=== PATIENT | male | born 1955 | race African-American/Black ===

== ENCOUNTER 2018-08-18 11:34 | Inpatient (IN) | payer OTHER ==
[2018-08-18 14:43] VITALS: BMI 30.4
--- NOTE | 2018-08-18 16:16 | HP ---
COWS - Scale Resting Pulse: 0= [place] 80 or Below Sweatin= Chills/Flushing Restless Observation: 1= Difficult to Sit Still Pupil Size: 0= Normal to Room Light Bone or Joint Aches: 2= Severe Diffuse Aches Runny Nose/ Eye Tearin= None GI Upset > 30mins: 2= Nausea/Diarrhea Tremor Observation: 2= Slight Tremor Visible Yawning Observation: 1= 1-2x During Session Anxiety or Irritability: 2=Irritable/Anxious Goose Flesh Skin: 3=Piloerection COWS Score: 14 CIWA Score - Admission Criteria OASAS Guidelines: Admission for Medically Managed Detox: Requires at least one of the followin. CIWA greater than 12 2. Seizures within the past 24 hours 3. Delirium tremens within the past 24 hours 4. Hallucinations within the past 24 hours 5. Acute intervention needed for co occurring medical disorder 6. Acute intervention needed for co occurring psychiatric disorder 7. Severe withdrawal that cannot be handled at a lower level of care (continued vomiting, continued diarrhea, abnormal vital signs) requiring intravenous medication and/or fluids 8. Admission ROS [facility] Chief Complaint: "I'm here to get help for my drug problem." Patient is here for Detox for Heroin and Alcohol. Allergies/Adverse Reactions: Allergies Allergy/AdvReac Type Severity Reaction Status Date / Time No Known Allergies Allergy Verified 08/18/18 14:24 History of Present Illness: Patient is a 63 YO male here for Detox from Heroin and Alcohol. Patient also reports daily use of Cocaine, PCP, and Marijuana. Patient was evaluated at [facility] yesterday, then transported here to [facility]. Patient reports that he had prescription Biktarvy and Augmentin with him at [facility] (Augmentin was prescribed approx. four days ago at Urgent Care for URI). This is patient's first detox admission at [facility]. Patient had a Detox admission at [facility] ([place], [place]) in March,. Patient was a client at [facility] ([place], [place], Patient unable to recall name of clinic) for approx. 30 days up until 03/2018, Stopped because he did not like how it made him feel. [facility] I-STOP REGISTRY SHOWS NO HISTORY OF PRESCRIPTION OF CONTROLLED SUBSTANCES OVER LAST 12 MONTHS. Exam Limitations: No Limitations - Ebola screening Have you traveled outside of the country in the last 21 days: No (N) Have you had contact with anyone from an Ebola affected area: No Have you been sick,other than usual withdrawal symptoms: No Do you have a fever: No - Review of Systems Constitutional: Chills, Diaphoresis, Malaise, Changes in sleep, Unintentional Wgt. Loss (Lost approx. 17 lbs. over last approx. 2 weeks.) EENT: reports: No Symptoms Reported Respiratory: reports: Productive cough (Clear-Yellow Color.) Cardiac: reports: No Symptoms Reported GI: reports: Diarrhea, Nausea, Poor Appetite, Abdominal cramping : reports: No Symptoms Reported Musculoskeletal: reports: No Symptoms Reported Integumentary: reports: No Symptoms Reported, Other (Patient Denies I.V. Drug Use.) Neuro: reports: Tremors Endocrine: reports: No Symptoms Reported Hematology: reports: No Symptoms Reported Psychiatric: reports: Judgement Intact, Mood/Affect Appropiate, Orientated x3, Anxious, Depressed (Took Welbutrin and Seroquel in past.) Other Systems: Reviewed and Negative Patient History - Patient Medical History Hx Anemia: No Hx Asthma: No Hx Chronic Obstructive Pulmonary Disease (COPD): No Hx Cancer: No Hx Cardiac Disorders: No Hx Congestive Heart Failure: No Hx Hypertension: No Hx Hypercholesterolemia: No Hx Pacemaker: No HX Cerebrovascular Accident: No Hx Seizures: No Hx Dementia: No Hx Diabetes: No Hx Gastrointestinal Disorders: No Hx Liver Disease: Yes (Hepatitis C, Diagnosed 2001. No Treatment Yet.) Hx Genitourinary Disorders: No Hx Sexually Transmitted Disorders: No Hx Renal Disease (ESRD): No Hx Thyroid Disease: No Hx Human Immunodeficiency Virus (HIV): Yes (Takes Biktarvy, Diagnosed 2001.) Hx Hepatitis C: Yes (Diagnosed 2001. No Treatment Yet.) Hx Depression: Yes (Meds. in Past, None Currently.) Hx Suicide Attempt: No (PATIENT DENEIS CURRENT SI / HI.) Hx Bipolar Disorder: No Hx Schizophrenia: No Other Medical History: DENIES. - Patient Surgical History Past Surgical History: No Hx Neurologic Surgery: No Hx Cataract Extraction: No Hx Cardiac Surgery: No Hx Lung Surgery: No Hx Breast Surgery: No Hx Breast Biopsy: No Hx Abdominal Surgery: No Hx Appendectomy: No Hx Cholecystectomy: No Hx Genitourinary Surgery: No Hx Orthopedic Surgery: No Other Surgical History: DENIES. Anesthesia Reaction: No - PPD History Previous Implant?: Yes Documented Results: Negative w/o proof Implanted On Prior [facility] Admission?: No PPD to be Administered?: Yes - Reproductive History Patient is a Female of Child Bearing Age (11 -55 yrs old): No (PATIENT IS MALE.) - Smoking Cessation Smoking history: Current every day smoker Have you smoked in the past 12 months: Yes Aproximately how many cigarettes per day: 2 Cigars Per Day: 0 Hx Chewing Tobacco Use: No Initiated information on smoking cessation: Yes 'Breaking Loose' booklet given: 08/18/18 (GIVEN ON UNIT.) - Substance & Tx. History Hx Alcohol Use: Yes Hx Substance Use: Yes Substance Use Type: Alcohol, Cocaine, Heroin, Marijuana Hx Substance Use Treatment: Yes (1 Previous detox Admission at [facility] ([place], [place]), 2017.) - Substances abused Heroin Substance route: Inhalation Frequency: Daily Amount used: 200 hundred dollars Age of first use: 11 Date of last use: 08/17/18 Cocaine Substance route: Smoking Frequency: Daily Amount used: 100 dollars Age of first use: 21 Date of last use: 08/17/18 PCP Substance route: Smoking Frequency: Daily Amount used: 100 dollars Age of first use: 21 Date of last use: 08/17/18 Alcohol Substance route: Oral Frequency: Daily Amount used: 1 quart Age of first use: 11 Date of last use: 08/17/18 Marijuana/Hashish Substance route: Smoking Frequency: Daily Amount used: 100 dollars Age of first use: 11 Date of last use: 08/17/18 Family Disease History - Family Disease History Family Disease History: Diabetes: Brother, Other: Father (HIV, Schizophrenia, .) Admission Physical Exam [facility] - Vital Signs Vital Signs: Vital Signs - 24 hr 08/18/18 14:24 Temperature 98.2 F Pulse Rate 72 Respiratory 16 Rate Blood Pressure 132/73 - Physical General Appearance: Yes: No Apparent Distress, Nourished, Appropriately Dressed , Tremorous, Anxious HEENTM: Yes: Hearing grossly Normal, Normocephalic, Normal Voice, EDER, Pharynx Normal Respiratory: Yes: Chest Non-Tender, Lungs Clear, No Respiratory Distress, No Accessory Muscle Use Neck: Yes: No masses,lesions,Nodules, Supple, Trachea in good position Breast: Yes: Breast Exam Deferred Cardiology: Yes: Regular Rhythm, Regular Rate, S1, S2 Abdominal: Yes: Normal Bowel Sounds, Non Tender, Flat, Soft Genitourinary: Yes: Within Normal Limits Back: Yes: Normal Inspection Musculoskeletal: Yes: full range of Motion, Gait Steady Extremities: Yes: Normal Capillary Refill, Normal Range of Motion, Non-Tender, Tremors Neurological: Yes: Fully Oriented, Alert, Normal Mood/Affect, Normal Response Integumentary: Yes: Normal Color, Dry, Warm Lymphatic: Yes: Within Normal Limits - Diagnostic (1) Opioid dependence with withdrawal Current Visit: Yes Status: Acute (2) Alcohol dependence with uncomplicated withdrawal Current Visit: Yes Status: Acute (3) Cocaine dependence, uncomplicated Current Visit: Yes Status: Chronic (4) Cannabis dependence, uncomplicated Current Visit: Yes Status: Chronic (5) PCP (phencyclidine) abuse Current Visit: Yes Status: Acute (6) Nicotine dependence Current Visit: Yes Status: Chronic Qualifiers: Nicotine product type: cigarettes Substance use status: uncomplicated Qualified Code(s): F17.210 - Nicotine dependence, cigarettes, uncomplicated (7) HIV (human immunodeficiency virus infection) Current Visit: Yes Status: Chronic Qualifiers: HIV symptom status: unspecified Qualified Code(s): B20 - Human immunodeficiency virus [HIV] disease (8) Hepatitis C Current Visit: Yes Status: Chronic Qualifiers: Viral hepatitis chronicity: chronic Hepatic coma status: without hepatic coma Qualified Code(s): B18.2 - Chronic viral hepatitis C (9) History of depression Current Visit: Yes Status: Chronic Cleared for Admission [facility] or Rehab [facility] Level of Care: Medically Managed Detox Regimen/Protocol: Methadone (AND ATIVAN (History of Hepatitis C).) Claeared for Rehab Admission: No Breathalyzer - Breathalyzer Breathalyzer: 0 Urine Drug Screen - Test Device Lot number: [id number] Expiration date: 05/06/20 - Control Is test valid?: Yes - Results Drug screen NEGATIVE: No Urine drug screen results: THC-Marijuana, NEGRITO-Cocaine, MOP-Opiates Inpatient Rehab Admission - Rehab Decision to Admit Inpatient rehab admission?: No
[2018-08-18] MEDS ORDERED: LORazepam 1 MG TABLET PO PRN (16:36)
[2018-08-18] MEDS ORDERED: MAGNESIUM CITRATE 300 ML BOTTLE PO PRN (16:36)
[2018-08-18] MEDS ORDERED: NICOTINE POLACRILEX 2 MG GUM BUC PRN (16:36)
[2018-08-18] MEDS ORDERED: cloNIDine HCL 0.1 MG TABLET PO PRN (16:36)
[2018-08-18] MEDS ORDERED: MAG HYDROX/AL HYDROX/SIMETH 30 ML UNIT-DOSE CUP PO PRN (16:36)
[2018-08-18] MEDS ORDERED: MAGNESIUM HYDROX 2400MG/30ML ORAL SUSPENSION 30 ML CUP PO PRN (16:36)
[2018-08-18] MEDS ORDERED: MENTHOL/PHENOL 1 EACH UD MM PRN (16:36)
[2018-08-18] MEDS ORDERED: NALOXONE HCL 0.4 MG/ML VIAL IVPUSH PRN (16:36)
[2018-08-18] MEDS ORDERED: MELATONIN 5 MG TABLETS PO PRN (16:36)
[2018-08-18] MEDS ORDERED: METHOCARBAMOL 500 MG TABLET PO PRN (16:36)
[2018-08-18] MEDS ORDERED: BISMUTH SUBSALICYLATE 524 MG/30 ML UD PO PRN (16:36)
[2018-08-18] MEDS ORDERED: PROCHLORPERAZINE MALEATE 5 MG TABLET PO PRN (16:36)
[2018-08-18] MEDS ORDERED: IBUPROFEN 400 MG TABLET (FP) PO PRN (16:36)
[2018-08-18] MEDS: LORazepam 2 MG TABLET PO SCH ×2 (17:58→23:53)
[2018-08-18] MEDS ORDERED: METHADONE HCL 10 MG TABLET (FOR DETOX USE ONLY) PO ONE ×2 (18:00→23:00)
[2018-08-18] MEDS: NICOTINE 14 MG/24 HOURS TOPICAL PATCH TD SCH ×2 (18:06→18:07)
--- NOTE | 2018-08-18 18:17 | PN ---
[facility] Progress Note Note: AT TIME OF ADMISSION, PATIENT REPORTS THAT HE TAKES 'BIKTARVY' FOR TREATMENT OF H.I.V. PATIENT DID NOT BRING MEDICATION WITH HIM AT TIME OF ADMISSION, STATING THAT HE HAD IT WITH HIM AT [facility] WHEN HE WAS THERE YESTERDAY, BUT THAT IT DISAPPEARED WHILE HE WAS THERE AND THAT HE THINKS THAT IT WAS STOLEN." PER PHARMACIST TAMI AT PATIENT'S PHARMACY ([facility], [address]), PATIENT ONLY FILLED PRESCRIPTION FOR BIKTARVY FOR THE FIRST TIME YESTERDAY (08/17/2018) AND THAT HE HAS BEEN PRESCRIBED 'TIVICAY' FOR LAST SEVERAL TIMES BEFORE THAT. LAST TIME TIVICAY WAS FILLED WAS ON 08/13/2018. [facility] THAT PATIENT HAS FILLED 30- DAY PRESCRIPTIONS FOR TIVICAY AT SIGNIFICANTLY LESS THAN 30-DAY INTERVALS IN RECENT PAST. AFTER CONSULTATION WITH [facility] PHARMACIST TRISHA MARTÍNEZ, BIKTARVY NOT TO BE PRESCRIBED WHILE PATIENT IS ADMITTED FOR THIS DETOX ADMISSION. PATIENT MADE AWARE OF THIS AND ADVISED TO FOLLOW-UP WITH HIS H.I.V. / I.D. MEDICAL PROVIDER AFTER DISCHARGE FORM DETOX FOR FURTHER EVALUATION. Jamar HERNÁNDEZ NP
[2018-08-18] MEDS ORDERED: THIAMINE HCL 100 MG TABLET (FP) PO SCH (22:00)
[2018-08-18] MEDS: AMOX TR/POT CLAV 875MG/125MG TABLETS (FP) PO SCH (23:53)
[2018-08-19] MEDS: LORazepam 2 MG TABLET PO SCH ×2 (05:44→10:28)
[2018-08-19] MEDS ORDERED: PATIENT'S OWN MEDICATION (NON-FORMULARY) (Bictegrav/Emtricit/Tenofov Ala 1 EACH) PO SCH (10:00)
[2018-08-19] MEDS ORDERED: METHADONE HCL 10 MG TABLET (FOR DETOX USE ONLY) PO ONE (10:00)
[2018-08-19] MEDS ORDERED: PRENATAL VITAMINS W/ FOLIC ACID TABLET (FP) PO SCH (10:00)
[2018-08-19 10:04] LABS: HEMATOCRIT 39.7 % (35.4-49); HEMOGLOBIN 12.8 GM/dL (11.7-16.9); MCH 30.1 pg (25.7-33.7); MCHC 32.1 g/dl (32.0-35.9); MEAN CELL VOLUME 93.9 fl (80-96); MEAN PLT VOLUME 9.3 fl (7.5-11.1); PLATELET COUNT 279 K/MM3 (134-434); RBC 4.23 M/mm3 (4.00-5.60); RDW 13.2 % (11.9-15.9); WHITE BLOOD COUNT 5.3 K/mm3 (4.0-10.0)
[2018-08-19 10:21] LABS: ALBUMIN 2.9 g/dl (3.4-5.0); BILIRUBIN,TOTAL 0.5 mg/dL (0.2-1); CALCIUM 9.3 mg/dL (8.5-10.1); CREATININE 1.1 mg/dL (0.55-1.3); POTASSIUM 4.3 mmol/L (3.5-5.1); TOT PROT 6.3 g/dl (6.4-8.2)
[2018-08-19] MEDS: AMOX TR/POT CLAV 875MG/125MG TABLETS (FP) PO SCH (10:28)
[2018-08-19] MEDS: NICOTINE 14 MG/24 HOURS TOPICAL PATCH TD SCH (10:34)
[2018-08-19 10:35] VITALS: BP 141/69; PULSE 54; TEMP 97.7
--- NOTE | 2018-08-19 12:08 | PN ---
S Progress Note Note: pt refused to complete detox and needed to handle his personal issue at home. staff tried to assist but pt insisted on leaving, pt signed out AMA.
--- NOTE | 2018-08-19 12:09 | DS ---
[facility] Detox Discharge Summary Admission Date: 08/18/18 - History Present History: Cannabis Dependence, Cocaine Dependence, Opioid Dependence - Physical Exam Results Vital Signs: Vital Signs Temperature 97.7 F 08/19/18 10:35 Pulse Rate 54 L 08/19/18 10:35 Respiratory Rate 18 08/19/18 10:35 Blood Pressure 141/69 08/19/18 10:35 O2 Sat by Pulse Oximetry (%) - Treatment Hospital Course: Discharged Condition Good - Medication Discharge Medications: Ambulatory Orders Amoxicillin/Potassium Clav [Amox-Clav 875-125 mg Tablet] 1 each PO BID 08/18/18 Bictegrav/Emtricit/Tenofov Ala [Biktarvy 50-200-25 mg Tablet] 1 each PO DAILY - Diagnosis (1) Alcohol dependence with uncomplicated withdrawal Current Visit: Yes Status: Chronic (2) Opioid dependence with withdrawal Current Visit: Yes Status: Chronic (3) PCP (phencyclidine) abuse Current Visit: Yes Status: Chronic (4) Cannabis dependence, uncomplicated Current Visit: Yes Status: Chronic (5) Cocaine dependence, uncomplicated Current Visit: Yes Status: Chronic (6) HIV (human immunodeficiency virus infection) Current Visit: Yes Status: Chronic Qualifiers: HIV symptom status: unspecified Qualified Code(s): B20 - Human immunodeficiency virus [HIV] disease (7) Hepatitis C Current Visit: Yes Status: Chronic Qualifiers: Viral hepatitis chronicity: chronic Hepatic coma status: without hepatic coma Qualified Code(s): B18.2 - Chronic viral hepatitis C (8) History of depression Current Visit: Yes Status: Chronic (9) Nicotine dependence Current Visit: Yes Status: Chronic Qualifiers: Nicotine product type: cigarettes Substance use status: uncomplicated Qualified Code(s): F17.210 - Nicotine dependence, cigarettes, uncomplicated - AMA Did Patient Leave Against Medical Advice: Yes
[2018-08-19 12:38] LABS: EPI CELLS 1.5 /HPF (0-5/HPF); PH,URINE 6.5 (5.0-8.0); URINE APPEARANCE CLEAR; URINE BACTERIA 1516.8 /hpf (NEGATIVE); URINE BILIRUBIN NEGATIVE (NEGATIVE); URINE CASTS 5 /lpf (0-8); URINE COLOR DK YELLOW; URINE GLUCOSE (UA) NEGATIVE (NEGATIVE); URINE KETONE NEGATIVE (NEGATIVE); URINE LEUK ESTERASE NEGATIVE (NEGATIVE); URINE NITRITE NEGATIVE (NEGATIVE); URINE PROTEIN 1+ (NEGATIVE); URINE RBC 0 /hpf (0-4); URINE WBC 0 /hpf (0-5)
--- NOTE | 2018-08-19 14:31 | EKG ---
Test Reason : Blood Pressure : / mmHG Vent. Rate : 050 BPM Atrial Rate : 050 BPM P-R Int : 166 ms QRS Dur : 086 ms QT Int : 498 ms P-R-T Axes : -13 -26 -46 degrees QTc Int : 454 ms SINUS BRADYCARDIA T WAVE ABNORMALITY, CONSIDER INFERIOR ISCHEMIA ABNORMAL ECG NO PREVIOUS ECGS AVAILABLE Confirmed by GABE FLORES, BRITTANI ([id number]) on 08/19/2018 2:31:03 PM Referred By: KENDALL HERNÁNDEZ Confirmed By:BRITTANI BERNAL MD
[2018-08-19] MEDS ORDERED: LORazepam 1 MG TABLET PO SCH (17:00)
[2018-08-20] MEDS ORDERED: METHADONE HCL 10 MG TABLET (FOR DETOX USE ONLY) PO ONE (10:00)
[2018-08-20] MEDS ORDERED: LORazepam 0.5 MG TABLET PO SCH (17:00)
[2018-08-20] MEDS ORDERED: LORazepam 0.5 MG TABLET PO PRN (17:00)
[2018-08-21] MEDS ORDERED: METHADONE HCL 10 MG TABLET (FOR DETOX USE ONLY) PO ONE (10:00)
[2018-08-22] MEDS ORDERED: METHADONE HCL 5 MG TABLET (FOR DETOX USE ONLY) PO ONE (06:00)
== END 2018-08-19 12:05 | disposition left against medical advice (07) | DRG 770 ==
LOC: YASAS 11:34 → Y6N 17:08
PROVIDERS: ADMIT Surgery; ATTEND Surgery
PROC: HZ2ZZZZ Detoxification Services for Substance Abuse Treatment (ICD-10-PCS; principal; 2018-08-18)
DX: F11.23 Opioid dependence with withdrawal (principal); F10.230 Alcohol dependence with withdrawal, uncomplicated; F14.20 Cocaine dependence, uncomplicated; F12.20 Cannabis dependence, uncomplicated; F16.10 Hallucinogen abuse, uncomplicated; F17.210 Nicotine dependence, cigarettes, uncomplicated; Z21 Asymptomatic human immunodeficiency virus [HIV] infection status; B18.2 Chronic viral hepatitis C
CPT/HCPCS: 36415; 80053; 81003; 85027; 86593; 93005; 93010

== ENCOUNTER 2018-09-23 13:55 | Inpatient (IN) | payer OTHER ==
[2018-09-23 17:16] VITALS: BMI 31.1
--- NOTE | 2018-09-23 19:34 | HP ---
COWS - Scale Resting Pulse: 0= [place] 80 or Below Sweatin= Chills/Flushing Restless Observation: 1= Difficult to Sit Still Pupil Size: 1= Pupils >than Normal Bone or Joint Aches: 1= Mild Discomfort Runny Nose/ Eye Tearin= Runny Nose/Eyes GI Upset > 30mins: 1= Stomach Cramp Tremor Observation: 1= Tremor Edison, Not Seen Yawning Observation: 1= 1-2x During Session Anxiety or Irritability: 1=Feels Anxious/Irritable Goose Flesh Skin: 0=Smooth Skin COWS Score: 10 CIWA Score Nausea/Vomitin-Mild Nausea/No Vomiting Muscle Tremors: 1-None Visible, but Edison Anxiety: 3 Agitation: 2 Paroxysmal Sweats: 2 Orientation: 0-Oriented Tacttile Disturbances: 0-None Auditory Disturbances: 0-None Visual Disturbances: 0-None Headache: 0-None Present CIWA-Ar Total Score: 9 - Admission Criteria OAS Guidelines: Admission for Medically Managed Detox: Requires at least one of the followin. CIWA greater than 12 2. Seizures within the past 24 hours 3. Delirium tremens within the past 24 hours 4. Hallucinations within the past 24 hours 5. Acute intervention needed for co occurring medical disorder 6. Acute intervention needed for co occurring psychiatric disorder 7. Severe withdrawal that cannot be handled at a lower level of care (continued vomiting, continued diarrhea, abnormal vital signs) requiring intravenous medication and/or fluids 8. Patient presents the following: Acute intervention needed for co-occurring med or psych disorder Admission Criteria Met: Admission criteria met Admission ROS [facility] Chief Complaint: alcohol and opioid withdrawal symptoms Allergies/Adverse Reactions: Allergies Allergy/AdvReac Type Severity Reaction Status Date / Time No Known Allergies Allergy Verified 08/20/18 12:11 History of Present Illness: Patient is a 63 YO male here for Detox from cocaine, heroin and alcohol dependence is here seeking inpatient detox d/t withdrawal symptoms PMHX: Hep C (untreated), HIV, bradycardia Psych: depression Denies SI/HI Reports unintentional overdose x November 2017. Exam Limitations: No Limitations - Ebola screening Have you traveled outside of the country in the last 21 days: No Have you had contact with anyone from an Ebola affected area: No Do you have a fever: No - Review of Systems Constitutional: Chills, Loss of Appetite, Changes in sleep EENT: reports: Nose Congestion Respiratory: reports: No Symptoms reported Cardiac: reports: No Symptoms Reported GI: reports: Poor Appetite, Poor Fluid Intake, Abdominal cramping : reports: No Symptoms Reported Musculoskeletal: reports: Back Pain Integumentary: reports: Other (b/l ankle swelling) Neuro: reports: No Symptoms reported Endocrine: reports: Increased Thirst Hematology: reports: No Symptoms Reported Psychiatric: reports: Orientated x3, Depressed Other Systems: Reviewed and Negative Patient History - Patient Medical History Hx Anemia: No Hx Asthma: No Hx Chronic Obstructive Pulmonary Disease (COPD): No Hx Cancer: No Hx Cardiac Disorders: No Hx Congestive Heart Failure: No Hx Hypertension: No Hx Hypercholesterolemia: No Hx Pacemaker: No HX Cerebrovascular Accident: No Hx Seizures: No Hx Dementia: No Hx Diabetes: No Hx Gastrointestinal Disorders: No Hx Liver Disease: Yes (Hepatitis C, Diagnosed 2001. No Treatment Yet.) Hx Genitourinary Disorders: No Hx Sexually Transmitted Disorders: No Hx Renal Disease (ESRD): No Hx Thyroid Disease: No Hx Human Immunodeficiency Virus (HIV): Yes (Takes Lettyarmony, Diagnosed 2001.) Hx Hepatitis C: Yes (Diagnosed 2001. No Treatment Yet.) Hx Depression: Yes (Meds. in Past, None Currently.) Hx Suicide Attempt: No (PATIENT DENEIS CURRENT SI / HI.) Hx Bipolar Disorder: No Hx Schizophrenia: No - Patient Surgical History Past Surgical History: No Hx Neurologic Surgery: No Hx Cataract Extraction: No Hx Cardiac Surgery: No Hx Lung Surgery: No Hx Breast Surgery: No Hx Breast Biopsy: No Hx Abdominal Surgery: No Hx Appendectomy: No Hx Cholecystectomy: No Hx Genitourinary Surgery: No Hx Orthopedic Surgery: No Other Surgical History: DENIES. Anesthesia Reaction: No - PPD History Previous Implant?: No Documented Results: Negative w/o proof Date: 08/20/18 PPD to be Administered?: Yes - Smoking Cessation Smoking history: Current every day smoker Have you smoked in the past 12 months: Yes Aproximately how many cigarettes per day: 2 Cigars Per Day: 0 Hx Chewing Tobacco Use: No Initiated information on smoking cessation: Yes 'Breaking Loose' booklet given: 09/23/18 - Substance & Tx. History Hx Alcohol Use: Yes Hx Substance Use: Yes Substance Use Type: Alcohol, Heroin Hx Substance Use Treatment: Yes ([facility] two weeks ago left AMA ) - Substances abused Heroin Substance route: Inhalation Frequency: Daily Amount used: 200 hundred dollars Age of first use: 11 Date of last use: 09/22/18 Cocaine Substance route: Smoking Frequency: Daily Amount used: 100 dollars Age of first use: 21 Date of last use: 09/09/18 PCP Substance route: Smoking Frequency: Daily Amount used: 100 dollars Age of first use: 21 Date of last use: 09/13/18 Alcohol Substance route: Oral Frequency: Daily Amount used: 1 quart liquor + 1 x 24 oz beer Age of first use: 11 Date of last use: 09/21/18 Marijuana/Hashish Substance route: Smoking Frequency: Daily Amount used: 100 dollars Age of first use: 11 Date of last use: 09/15/18 Family Disease History - Family Disease History Family Disease History: Diabetes: Brother, Other: Father (HIV, Schizophrenia, .) Admission Physical Exam [facility] - Vital Signs Vital Signs: Vital Signs - 24 hr 09/23/18 17:11 Pulse Rate 48 L Respiratory 18 Rate Blood Pressure 128/60 - Physical General Appearance: Yes: Disheveled, Sweating, Anxious HEENTM: Yes: EOMI, Hearing grossly Normal, Normal ENT Inspection, Normocephalic , Normal Voice, EDER, Pharynx Normal, Tm's normal Respiratory: Yes: Chest Non-Tender, Lungs Clear, Normal Breath Sounds, No Respiratory Distress, No Accessory Muscle Use Neck: Yes: No masses,lesions,Nodules, Trachea in good position Breast: Yes: Breast Exam Deferred Cardiology: Yes: Regular Rhythm, Regular Rate Abdominal: Yes: Normal Bowel Sounds, Non Tender, Flat, Soft Genitourinary: Yes: Within Normal Limits Back: Yes: Normal Inspection Musculoskeletal: Yes: full range of Motion, Gait Steady, Pelvis Stable, Back pain Extremities: Yes: Normal Capillary Refill, Normal Inspection, Normal Range of Motion Neurological: Yes: box stacker II-XII NML intact, Fully Oriented, Alert, Motor Strength 5/5, Depressed Affect Integumentary: Yes: Normal Color, Warm, Diaphoresis Lymphatic: Yes: Within Normal Limits - Diagnostic (1) Alcohol dependence with uncomplicated withdrawal Current Visit: Yes Status: Chronic (2) Cannabis dependence, uncomplicated Current Visit: Yes Status: Chronic (3) Cocaine dependence, uncomplicated Current Visit: Yes Status: Chronic (4) HIV (human immunodeficiency virus infection) Current Visit: Yes Status: Chronic Qualifiers: HIV symptom status: unspecified Qualified Code(s): B20 - Human immunodeficiency virus [HIV] disease (5) Hepatitis C Current Visit: Yes Status: Chronic Qualifiers: Viral hepatitis chronicity: chronic Hepatic coma status: without hepatic coma Qualified Code(s): B18.2 - Chronic viral hepatitis C (6) Nicotine dependence Current Visit: Yes Status: Chronic Qualifiers: Nicotine product type: cigarettes Substance use status: uncomplicated Qualified Code(s): F17.210 - Nicotine dependence, cigarettes, uncomplicated (7) Opioid dependence with withdrawal Current Visit: Yes Status: Chronic Cleared for Admission S - Detox or Rehab [facility] Level of Care: Medically Managed Detox Regimen/Protocol: Methadone/Valium Breathalyzer - Breathalyzer Breathalyzer: 0 Urine Drug Screen - Test Device Lot number: [id number] Expiration date: 06/03/20 - Control Is test valid?: Yes - Results Drug screen NEGATIVE: No Urine drug screen results: NEGRITO-Cocaine, FEN-Fentanyl, MOP-Opiates, MTD-Methadone , BZO-Benzodiazepines Inpatient Rehab Admission - Rehab Decision to Admit Inpatient rehab admission?: No
[2018-09-23] MEDS ORDERED: BISMUTH SUBSALICYLATE 524 MG/30 ML UD PO PRN (19:49)
[2018-09-23] MEDS ORDERED: MAGNESIUM CITRATE 300 ML BOTTLE PO PRN (19:49)
[2018-09-23] MEDS ORDERED: METHOCARBAMOL 500 MG TABLET PO PRN (19:49)
[2018-09-23] MEDS ORDERED: IBUPROFEN 400 MG TABLET (FP) PO PRN (19:49)
[2018-09-23] MEDS ORDERED: MENTHOL/PHENOL 1 EACH UD MM PRN (19:49)
[2018-09-23] MEDS ORDERED: MAGNESIUM HYDROX 2400MG/30ML ORAL SUSPENSION 30 ML CUP PO PRN (19:49)
[2018-09-23] MEDS ORDERED: MELATONIN 5 MG TABLETS PO PRN (19:49)
[2018-09-23] MEDS ORDERED: MAG HYDROX/AL HYDROX/SIMETH 30 ML UNIT-DOSE CUP PO PRN (19:49)
[2018-09-23] MEDS: diazePAM 5 MG TABLET PO PRN (21:09)
[2018-09-23] MEDS: diazePAM 5 MG TABLET PO SCH (22:26)
[2018-09-23] MEDS: THIAMINE HCL 100 MG TABLET (FP) PO SCH (22:26)
[2018-09-23] MEDS ORDERED: METHADONE HCL 10 MG TABLET (FOR DETOX USE ONLY) PO ONE (23:00)
[2018-09-24] MEDS: diazePAM 5 MG TABLET PO SCH ×3 (05:38→22:23)
[2018-09-24 05:46] LABS: URINE APPEARANCE TURBID; URINE BILIRUBIN NEGATIVE (NEGATIVE); URINE COLOR YELLOW; URINE GLUCOSE (UA) NEGATIVE (NEGATIVE); URINE KETONE TRACE (NEGATIVE); URINE LEUK ESTERASE NEGATIVE (NEGATIVE); URINE NITRITE NEGATIVE (NEGATIVE); URINE PROTEIN NEGATIVE (NEGATIVE)
[2018-09-24] MEDS ORDERED: METHADONE HCL 10 MG TABLET (FOR DETOX USE ONLY) PO ONE (10:00)
[2018-09-24] MEDS: diazePAM 5 MG TABLET PO PRN (10:27)
[2018-09-24] MEDS: PRENATAL VITAMINS W/ FOLIC ACID TABLET (FP) PO SCH (10:27)
[2018-09-24 11:43] LABS: HEMATOCRIT 38.7 % (35.4-49); HEMOGLOBIN 12.4 GM/dL (11.7-16.9); MCH 29.8 pg (25.7-33.7); MEAN CELL VOLUME 93.1 fl (80-96); PLATELET COUNT 308 K/MM3 (134-434); RBC 4.16 M/mm3 (4.00-5.60); RDW 14.1 % (11.9-15.9); WHITE BLOOD COUNT 5.4 K/mm3 (4.0-10.0)
[2018-09-24 11:52] LABS: ALBUMIN 3.4 g/dl (3.4-5.0); BILIRUBIN,TOTAL 0.4 mg/dL (0.2-1); BLOOD UREA NITROGEN 11.9 mg/dL (7-18); CALCIUM 8.9 mg/dL (8.5-10.1); CREATININE 1.2 mg/dL (0.55-1.3); POTASSIUM 4.5 mmol/L (3.5-5.1); TOT PROT 7.2 g/dl (6.4-8.2)
--- NOTE | 2018-09-24 12:58 | PN ---
S CIWA - CIWA Score Nausea/Vomitin-No Nausea/No Vomiting Muscle Tremors: 2 Anxiety: 3 Agitation: 1-Slight > Activity Paroxysmal Sweats: 3 Orientation: 0-Oriented Tacttile Disturbances: 1-Very Mild Itch/Numbness Auditory Disturbances: 0-None Visual Disturbances: 2-Mild Sensitivity Headache: 0-None Present CIWA-Ar Total Score: 12 [facility] COWS - Scale Resting Pulse: 0= [place] 80 or Below Sweatin= Chills/Flushing Restless Observation: 1= Difficult to Sit Still Pupil Size: 0= Normal to Room Light Bone or Joint Aches: 2= Severe Diffuse Aches Runny Nose/ Eye Tearin= Nasal Congestion GI Upset > 30mins: 0= None Tremor Observation of Outstretched Hands: 2= Slight Tremor Visible Yawning Observation: 1= 1-2x During Session Anxiety or Irritability: 2=Irritable/Anxious Goose Flesh Skin: 0=Smooth Skin COWS Score: 10 S Progress Note (SOAP) Subjective: Body Aches, Objective: PATIENT A & O X 3, OBSERVED AMBULATING ON UNIT UNASSISTED. IN NO ACUTE DISTRESS. 09/24/18 13:00 Vital Signs Temperature 97.4 F L 09/24/18 09:37 Pulse Rate 57 L 09/24/18 09:37 Respiratory Rate 18 09/24/18 09:37 Blood Pressure 110/56 L 09/24/18 09:37 O2 Sat by Pulse Oximetry (%) Laboratory Tests 09/24/18 09/24/18 09/24/18 04:00 07:00 07:00 WBC 5.4 RBC 4.16 Hgb 12.4 Hct 38.7 MCV 93.1 MCH 29.8 MCHC 32.0 RDW 14.1 Plt Count 308 MPV 9.0 Sodium 141 Potassium 4.5 Chloride 108 H Carbon Dioxide 29 Anion Gap 4 L BUN 11.9 Creatinine 1.2 Est GFR (CKD-EPI)AfAm 74.66 Est GFR (CKD-EPI)NonAf 64.42 Random Glucose 100 Calcium 8.9 Total Bilirubin 0.4 AST 85 H ALT 93 H Alkaline Phosphatase 83 Total Protein 7.2 Albumin 3.4 Urine Color Yellow Urine Appearance Turbid Urine pH 6.0 Ur Specific Theresa 1.023 Urine Protein Negative Urine Glucose (UA) Negative Urine Ketones Trace H Urine Blood Negative Urine Nitrite Negative Urine Bilirubin Negative Urine Urobilinogen 1.0 Ur Leukocyte Esterase Negative LABS NOTED. ADMISSION RPR RESULT PENDING. 09/24/18 13:01 Assessment: 09/24/18 13:01 WITHDRAWAL SYMPTOMS. ELEVATED AST LEVEL. ELEVATED ALT LEVEL. Plan: CONTINUE DETOX. INCREASE DAILY PO FLUID / WATER INTAKE. PATIENT REPORTS HISTORY OF BEING PRESCRIBED BIKTARVY FOR TREATMENT OF H.I.V. PATIENT DID NOT BEING MEDICATION WITH HIM AND REPORTS THAT HE RAN OUT OF IT AND THAT HE HAD NOT TAKEN IT FOR 3-4 DAYS PRIOR TO ADMISSION AT DETOX UNIT. PATIENT MADE AWARE THAT BIKTARVY WILL NOT BE ORDERED FOR HIM WHILE HE IS ADMITTED FOR DETOX AND HE WAS ADVISED TO FOLLOW-UP WITH MEDICAL PROVIDER DR. MARTINEZ AFTER DISCHARGE FROM DETOX FOR FURTHER MEDICAL EVALUATION AND FOR SUBSEQUENT CARE. PATIENT VERBALIZED UNDERSTANDING OF INFORMATION / RECOMMENDATION PRESENTED TO HIM TODAY.
[2018-09-24] MEDS: THIAMINE HCL 100 MG TABLET (FP) PO SCH (22:23)
[2018-09-25] MEDS: diazePAM 5 MG TABLET PO PRN (06:06)
[2018-09-25] MEDS ORDERED: METHADONE HCL 10 MG TABLET (FOR DETOX USE ONLY) PO ONE (10:00)
--- NOTE | 2018-09-25 10:20 | PN ---
[facility] CIWA - CIWA Score Nausea/Vomitin-No Nausea/No Vomiting Muscle Tremors: 1-None Visible, but [place] Anxiety: 2 Agitation: 2 Paroxysmal Sweats: 2 Orientation: 0-Oriented Tacttile Disturbances: 0-None Auditory Disturbances: 0-None Visual Disturbances: 0-None Headache: 1-Very Mild CIWA-Ar Total Score: 8 S COWS - Scale Resting Pulse: 0= [place] 80 or Below Sweatin= Chills/Flushing Restless Observation: 1= Difficult to Sit Still Pupil Size: 0= Normal to Room Light Bone or Joint Aches: 1= Mild Discomfort Runny Nose/ Eye Tearin= None GI Upset > 30mins: 0= None Tremor Observation of Outstretched Hands: 1= Tremor [place], Not Seen Yawning Observation: 2= >3x During Session Anxiety or Irritability: 0= None Goose Flesh Skin: 0=Smooth Skin COWS Score: 6 S Progress Note (SOAP) Subjective: c/o sweats, and anxiety. Objective: 09/25/18 10:19 Vital Signs 09/25/18 09/25/18 06:30 09:48 Temperature 97.1 F L 97.0 F L Pulse Rate 51 L 43 L Respiratory 18 18 Rate Blood Pressure 124/73 142/70 Lab Results WBC 5.4 K/mm3 (4.0-10.0) 09/24/18 07:00 RBC 4.16 M/mm3 (4.00-5.60) 09/24/18 07:00 Hgb 12.4 GM/dL (11.7-16.9) 09/24/18 07:00 Hct 38.7 % (35.4-49) 09/24/18 07:00 MCV 93.1 fl (80-96) 09/24/18 07:00 MCHC 32.0 g/dl (32.0-35.9) 09/24/18 07:00 RDW 14.1 % (11.9-15.9) 09/24/18 07:00 Plt Count 308 K/MM3 (134-434) 09/24/18 07:00 Sodium 141 mmol/L (136-145) 09/24/18 07:00 Potassium 4.5 mmol/L (3.5-5.1) 09/24/18 07:00 Chloride 108 mmol/L (98-107) H 09/24/18 07:00 Carbon Dioxide 29 mmol/L (21-32) 09/24/18 07:00 Anion Gap 4 MMOL/L (8-16) L 09/24/18 07:00 BUN 11.9 mg/dL (7-18) 09/24/18 07:00 Creatinine 1.2 mg/dL (0.55-1.3) 09/24/18 07:00 Random Glucose 100 mg/dL (74-106) 09/24/18 07:00 Calcium 8.9 mg/dL (8.5-10.1) 09/24/18 07:00 Labs pending. Assessment: 09/25/18 10:20 AOX3, in no acute distress. Full rom, ambulates in the unit. withdrawal signs Plan: continue detox.
[2018-09-25] MEDS: diazePAM 5 MG TABLET PO SCH ×2 (10:23→22:13)
[2018-09-25] MEDS: PRENATAL VITAMINS W/ FOLIC ACID TABLET (FP) PO SCH (10:24)
--- NOTE | 2018-09-25 12:30 | CONSULT ---
[facility] Psychiatric Consult - Data Date of interview: 09/25/18 Admission source: [facility] Identifying data: Readmission to [facility] for this 63 y/o AA male self- referred for detoxification ( heroin, cannabis, cocaine, phencyclidine, alcohol) . Interviewed at [address] [place] [address]. Patient is ( three years ago from fentanyl overdose, as per patient), a father of three, domiciled, unemployed and supported on Survivors benefits. Substance Abuse History: Discussed in this session. Refer to current [facility] report for details : Smoking history: Current every day smoker. Have you smoked in the past 12 months: Yes. Aproximately how many cigarettes per day: 2. Cigars Per Day: 0. Hx Chewing Tobacco Use: No. Initiated information on smoking cessation: Yes. 'Breaking Loose' booklet given: 09/23/18. - Substance & Tx. History. Hx Alcohol Use: Yes. Hx Substance Use: Yes. Substance Use Type: Alcohol, Heroin. Hx Substance Use Treatment: Yes ([facility] two weeks ago left AMA ) . - Substances abused. Heroin. Substance route: Inhalation. Frequency: Daily. Amount used: 200 hundred dollars. Age of first use: 11. Date of last use: 09/22/18. Cocaine. Substance route: Smoking. Frequency: Daily. Amount used: 100 dollars. Age of first use: 21. Date of last use: 09/09/18. * * PCP. Substance route: Smoking. Frequency: Daily. Amount used: 100 dollars. Age of first use: 21. Date of last use: 09/13/18. Alcohol. Substance route: Oral. Frequency: Daily. Amount used: 1 quart liquor + 1 x 24 oz beer. Age of first use: 11. Date of last use: 09/21/18. Marijuana/Hashish. Substance route: Smoking. Frequency: Daily. Amount used: 100 dollars. Age of first use: 11. Date of last use: 09/15/18 Medical History: Medical history is remarkable for HIV infection since 2001 (on ART medications but sporadically adherent to regimen), hepatitis C and bradycardia. Psychiatric History: Patient endorses a history of multiple psychiatric hospitalizations ([place], [facility], [facility]). Diagnosed with MDD and Anxiety Disorder. Mr Sherman reports that he has stopped going to [facility] program for psychiatric aftercare. Has reportedly NOT taken his prescribed wellbutrin + seroquel for " a little over a month ". Patient denies history of suicide attempts. Physical/Sexual Abuse/Trauma History: Heavy stressors : recent of , serious medical illnesses and addictions. Additional Comment: Urine drug screen results: NEGRITO-Cocaine, FEN-Fentanyl, MOP- Opiates, MTD-Methadone, BZO-Benzodiazepines. Noted. Mental Status Exam - Mental Status Exam Alert and Oriented to: Time, Place, Person Cognitive Function: Good Patient Appearance: Well Groomed (overweight) Mood: Nervous, Withdrawn, Irritable Affect: Appropriate, Normal Range Patient Behavior: Appropriate, Cooperative Speech Pattern: Clear Voice Loudness: Normal Thought Process: Goal Oriented Thought Disorder: Not Present Hallucinations: Denies Suicidal Ideation: Denies Homicidal Ideation: Denies Insight/Judgement: Poor Sleep: Poorly, Difficulty falling asleep Appetite: Good Muscle strength/Tone: Normal Gait/Station: Normal Psychiatric Findings - Problem List ([place] 1, 2,3) (1) Alcohol dependence with uncomplicated withdrawal Current Visit: Yes Status: Acute (2) Opioid dependence with withdrawal Current Visit: Yes Status: Acute (3) Cocaine dependence, uncomplicated Current Visit: Yes Status: Chronic (4) Cannabis dependence, uncomplicated Current Visit: Yes Status: Chronic (5) PCP (phencyclidine) abuse Current Visit: Yes Status: Chronic (6) Nicotine dependence Current Visit: Yes Status: Chronic Qualifiers: Nicotine product type: cigarettes Substance use status: uncomplicated Qualified Code(s): F17.210 - Nicotine dependence, cigarettes, uncomplicated (7) Substance induced mood disorder Current Visit: Yes Status: Chronic (8) History of depression Current Visit: Yes Status: Chronic Comment: Non-adherent to bupropion and OPD care. (9) Insomnia Current Visit: Yes Status: Acute (10) Non-compliance Current Visit: Yes Status: Chronic - Initial Treatment Plan Initial Treatment Plan: Psychoeducation. Sleep hygiene. Detoxification. Support. AA/NA meetings. Relapse prevention (MAT) measures : discussed in session. Patient verbalizes no interest in this option of care. Groups. Motivational counseling for the pursuit of sobriety. Patient declines to take wellbutrin or seroquel. Observation.
[2018-09-25] MEDS: THIAMINE HCL 100 MG TABLET (FP) PO SCH (22:13)
[2018-09-26] MEDS ORDERED: diazePAM 5 MG TABLET PO SCH (06:00)
[2018-09-26] MEDS ORDERED: METHADONE HCL 10 MG TABLET (FOR DETOX USE ONLY) PO ONE (10:00)
[2018-09-26] MEDS: PRENATAL VITAMINS W/ FOLIC ACID TABLET (FP) PO SCH (10:37)
--- NOTE | 2018-09-26 13:43 | PN ---
S CIWA - CIWA Score Nausea/Vomitin-Mild Nausea/No Vomiting Muscle Tremors: 2 Anxiety: 2 Agitation: 2 Paroxysmal Sweats: No Perspiration Orientation: 1-Uncertain about Date Tacttile Disturbances: 0-None Auditory Disturbances: 1-Very Mild Visual Disturbances: 0-None Headache: 1-Very Mild CIWA-Ar Total Score: 10 BHS COWS - Scale Resting Pulse: 0= [place] 80 or Below Sweatin= Chills/Flushing Restless Observation: 1= Difficult to Sit Still Pupil Size: 1= Pupils >than Normal Bone or Joint Aches: 1= Mild Discomfort Runny Nose/ Eye Tearin= Nasal Congestion GI Upset > 30mins: 1= Stomach Cramp Tremor Observation of Outstretched Hands: 0= None Yawning Observation: 1= 1-2x During Session Anxiety or Irritability: 1=Feels Anxious/Irritable Goose Flesh Skin: 0=Smooth Skin COWS Score: 8 S Progress Note (SOAP) Subjective: POOR SLEEP, SHAKINESS, GI UPSET Objective: 09/26/18 13:42 Vital Signs - 24 hr 09/25/18 09/25/18 09/25/18 13:50 17:52 22:18 Temperature 97 F L 97.7 F 97 F L Pulse Rate 44 L 46 L 50 L Respiratory 20 18 18 Rate Blood Pressure 125/71 105/58 L 139/78 09/26/18 09/26/18 09/26/18 00:30 03:30 06:31 Temperature 97.9 F Pulse Rate 43 L Respiratory 18 18 18 Rate Blood Pressure 118/61 09/26/18 09/26/18 09:20 13:18 Temperature 97.3 F L 97.1 F L Pulse Rate 49 L 46 L Respiratory 20 18 Rate Blood Pressure 130/64 140/72 Laboratory Tests 09/24/18 09/24/18 09/24/18 04:00 07:00 07:00 WBC 5.4 RBC 4.16 Hgb 12.4 Hct 38.7 MCV 93.1 MCH 29.8 MCHC 32.0 RDW 14.1 Plt Count 308 MPV 9.0 Sodium 141 Potassium 4.5 Chloride 108 H Carbon Dioxide 29 Anion Gap 4 L BUN 11.9 Creatinine 1.2 Est GFR (CKD-EPI)AfAm 74.66 Est GFR (CKD-EPI)NonAf 64.42 Random Glucose 100 Calcium 8.9 Total Bilirubin 0.4 AST 85 H ALT 93 H Alkaline Phosphatase 83 Total Protein 7.2 Albumin 3.4 Urine Color Yellow Urine Appearance Turbid Urine pH 6.0 Ur Specific [place] 1.023 Urine Protein Negative Urine Glucose (UA) Negative Urine Ketones Trace H Urine Blood Negative Urine Nitrite Negative Urine Bilirubin Negative Urine Urobilinogen 1.0 Ur Leukocyte Esterase Negative RPR Titer 09/24/18 07:00 WBC RBC Hgb Hct MCV MCH MCHC RDW Plt Count MPV Sodium Potassium Chloride Carbon Dioxide Anion Gap BUN Creatinine Est GFR (CKD-EPI)AfAm Est GFR (CKD-EPI)NonAf Random Glucose Calcium Total Bilirubin AST ALT Alkaline Phosphatase Total Protein Albumin Urine Color Urine Appearance Urine pH Ur Specific [place] Urine Protein Urine Glucose (UA) Urine Ketones Urine Blood Urine Nitrite Urine Bilirubin Urine Urobilinogen Ur Leukocyte Esterase RPR Titer Nonreactive Assessment: 09/26/18 13:43 ONGOING WITHDRAWAL Plan: CONT DETOX PROTOCOL
--- NOTE | 2018-09-26 19:38 | PN ---
[facility] Progress Note Note: Psychiatrist on [facility] note Called by nursing staff on behalf of patient requesting Seroquel. Dr Saavedra note read and appreciated. Patient was seen by Dr Saavedra on 09/25/18 at which time he told Dr Saavedra he did not take both of his psychotropic medications( Wellbutrin, Seroquel)for a month and declined to have them ordered. External medication history shows scripts for 14 days supply of both medications( Wellbutrin XL 150 mg/day, Seroquel 100 mg/hs) filled on 08/25/18 at [facility]. Will order Seroquel 100 mg/hs
[2018-09-26] MEDS: THIAMINE HCL 100 MG TABLET (FP) PO SCH (21:43)
[2018-09-26] MEDS ORDERED: QUEtiapine FUMARATE 100 MG TABLET (FP) PO SCH (22:00)
[2018-09-27] MEDS ORDERED: METHADONE HCL 5 MG TABLET (FOR DETOX USE ONLY) PO ONE (06:00)
[2018-09-27 06:15] VITALS: BP 119/60; PULSE 42; TEMP 97.4
--- NOTE | 2018-09-27 22:32 | DS ---
[facility] Detox Discharge Summary Admission Date: 09/23/18 Discharge Date: 09/27/18 - History Present History: Alcohol Dependence, Cannabis Dependence, Cocaine Dependence, Opioid Dependence, Pcp Dependence Additional Comments: PATIENT GOING TO THE [facility] ([place], [place]) FOR AFTERCARE. PATIENT WAS DISCHARGED FROM DETOX UNIT IN STABLE MEDICAL CONDITION. Pertinent Past History: Nicotine Dependence, Hep C, H.I.V., History Of Depression, History Of Bradycardia, Insomnia. - Physical Exam Results Vital Signs: Vital Signs Temperature 97.4 F L 09/27/18 06:14 Pulse Rate 42 L 09/27/18 06:14 Respiratory Rate 18 09/27/18 06:14 Blood Pressure 119/60 09/27/18 06:14 O2 Sat by Pulse Oximetry (%) Pertinent Admission Physical Exam Findings: WITHDRAWAL SYMPTOMS. Laboratory Tests 09/24/18 09/24/18 09/24/18 04:00 07:00 07:00 WBC 5.4 RBC 4.16 Hgb 12.4 Hct 38.7 MCV 93.1 MCH 29.8 MCHC 32.0 RDW 14.1 Plt Count 308 MPV 9.0 Sodium 141 Potassium 4.5 Chloride 108 H Carbon Dioxide 29 Anion Gap 4 L BUN 11.9 Creatinine 1.2 Est GFR (CKD-EPI)AfAm 74.66 Est GFR (CKD-EPI)NonAf 64.42 Random Glucose 100 Calcium 8.9 Total Bilirubin 0.4 AST 85 H ALT 93 H Alkaline Phosphatase 83 Total Protein 7.2 Albumin 3.4 Urine Color Yellow Urine Appearance Turbid Urine pH 6.0 Ur Specific [place] 1.023 Urine Protein Negative Urine Glucose (UA) Negative Urine Ketones Trace H Urine Blood Negative Urine Nitrite Negative Urine Bilirubin Negative Urine Urobilinogen 1.0 Ur Leukocyte Esterase Negative RPR Titer 09/24/18 07:00 WBC RBC Hgb Hct MCV MCH MCHC RDW Plt Count MPV Sodium Potassium Chloride Carbon Dioxide Anion Gap BUN Creatinine Est GFR (CKD-EPI)AfAm Est GFR (CKD-EPI)NonAf Random Glucose Calcium Total Bilirubin AST ALT Alkaline Phosphatase Total Protein Albumin Urine Color Urine Appearance Urine pH Ur Specific [place] Urine Protein Urine Glucose (UA) Urine Ketones Urine Blood Urine Nitrite Urine Bilirubin Urine Urobilinogen Ur Leukocyte Esterase RPR Titer Nonreactive LABS NOTED. - Treatment Hospital Course: Detox Protocol Followed, Detoxed Safely, Responded well, Discharged Condition Good Patient has Accepted a Rehab Referral to: PT. GOING TO THE [facility] ([place], [place]). - Medication Discharge Medications: Ambulatory Orders Bictegrav/Emtricit/Tenofov Ala [Biktarvy 50-200-25 mg Tablet] 1 each PO DAILY Bupropion HCl [Wellbutrin Xl -] 150 mg PO DAILY 09/25/18 Quetiapine Fumarate [Seroquel -] 150 mg PO BID 09/25/18 - Diagnosis (1) Alcohol dependence with uncomplicated withdrawal Status: Acute (2) Elevated alanine aminotransferase (ALT) level Status: Acute (3) Elevated aspartate aminotransferase level Status: Acute (4) Cannabis dependence, uncomplicated Status: Chronic (5) Cocaine dependence, uncomplicated Status: Chronic (6) HIV (human immunodeficiency virus infection) Status: Chronic Qualifiers: HIV symptom status: unspecified Qualified Code(s): B20 - Human immunodeficiency virus [HIV] disease (7) Hepatitis C Status: Chronic Qualifiers: Viral hepatitis chronicity: chronic Hepatic coma status: without hepatic coma Qualified Code(s): B18.2 - Chronic viral hepatitis C (8) History of depression Status: Chronic (9) Nicotine dependence Status: Chronic Qualifiers: Nicotine product type: cigarettes Substance use status: uncomplicated Qualified Code(s): F17.210 - Nicotine dependence, cigarettes, uncomplicated (10) Insomnia Status: Acute Qualifiers: Insomnia type: unspecified Qualified Code(s): G47.00 - Insomnia, unspecified (11) Opioid dependence with withdrawal Status: Acute (12) Non-compliance Status: Chronic (13) PCP (phencyclidine) abuse Status: Chronic (14) Substance induced mood disorder Status: Chronic - AMA Did Patient Leave Against Medical Advice: No
== END 2018-09-27 10:23 | disposition home or self-care (01) | DRG 773 ==
LOC: YASAS 13:55 → Y3N 20:29
PROVIDERS: ADMIT Surgery; ATTEND Surgery
PROC: HZ2ZZZZ Detoxification Services for Substance Abuse Treatment (ICD-10-PCS; principal; 2018-09-23)
DX: F10.230 Alcohol dependence with withdrawal, uncomplicated (principal); F11.23 Opioid dependence with withdrawal; F14.20 Cocaine dependence, uncomplicated; F16.20 Hallucinogen dependence, uncomplicated; F12.20 Cannabis dependence, uncomplicated; F17.210 Nicotine dependence, cigarettes, uncomplicated; F19.24 Other psychoactive substance dependence with psychoactive substance-induced mood disorder; F32.9 Major depressive disorder, single episode, unspecified; Z21 Asymptomatic human immunodeficiency virus [HIV] infection status; B18.2 Chronic viral hepatitis C; R00.1 Bradycardia, unspecified; G47.00 Insomnia, unspecified; R94.5 Abnormal results of liver function studies; Z91.19 Patient's noncompliance with other medical treatment and regimen
CPT/HCPCS: 36415; 80053; 81003; 85027; 86593

== ENCOUNTER 2019-01-03 09:53 | Inpatient (IN) | payer OTHER ==
[2019-01-03 10:20] VITALS: BMI 30.2
--- NOTE | 2019-01-03 11:08 | HP ---
COWS - Scale Resting Pulse: 0= [place] 80 or Below Sweatin= Chills/Flushing Restless Observation: 1= Difficult to Sit Still Pupil Size: 1= Pupils >than Normal Bone or Joint Aches: 1= Mild Discomfort Runny Nose/ Eye Tearin= Nasal Congestion GI Upset > 30mins: 1= Stomach Cramp Tremor Observation: 1= Tremor [place], Not Seen Yawning Observation: 1= 1-2x During Session Anxiety or Irritability: 2=Irritable/Anxious Goose Flesh Skin: 3=Piloerection COWS Score: 13 CIWA Score - Admission Criteria [facility]ASAS Guidelines: Admission for Medically Managed Detox: Requires at least one of the followin. CIWA greater than 12 2. Seizures within the past 24 hours 3. Delirium tremens within the past 24 hours 4. Hallucinations within the past 24 hours 5. Acute intervention needed for co occurring medical disorder 6. Acute intervention needed for co occurring psychiatric disorder 7. Severe withdrawal that cannot be handled at a lower level of care (continued vomiting, continued diarrhea, abnormal vital signs) requiring intravenous medication and/or fluids 8. Admitting History and Physical - Admission Chief Complaint: " I want to detox and then will go for rehab." History of Present Illness: 63 year old black male with opioid dependence with withdrawals, crack dependence , alcohol dependence. He drinks 3-4 nips daily, last drank yesterday. He uses heroin 6-8 bags of heroin daily, last used yesterday. He uses crack $100 daily, last used yesterday. History Source: Patient Limitations to Obtaining History: No Limitations - Past Medical History [employer]ATE [employer]: No: Dementia, Migraine, Multiple Sclerosis Infectious Disease: Yes: HIV, Other (HCV Disease untreated.) Psych: No: Anxiety, Depression, Panic, Schizophrenia Rheumatology: Yes: Other (osteoarthritis, on movic at times) - Past Surgical History Past Surgical History: Yes: None - Advance Directives Advance Directives: No: Living Will, Health Care Proxy, DNR - Smoking History Smoking history: Current every day smoker Have you smoked in the past 12 months: Yes Aproximately how many cigarettes per day: 2 - Alcohol/Substance Use Hx Alcohol Use: Yes (3-4 nips daily) Number of Drinks Daily: 3 History of Substance Use: reports: Cocaine, Heroin, Marijuana Date of Last Use: 01/02/19 - Social History Usual Living Arrangement: Yes: Alone Do you think of yourself as: Straight/Heterosexual ADL: Independent Occupation: environmental health officer, 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 History of Recent Travel: No Admission [facility] Chief Complaint: I want to come in for detox for cocaine and heroin mainly. Allergies/Adverse Reactions: Allergies Allergy/AdvReac Type Severity Reaction Status Date / Time No Known Allergies Allergy Verified 01/03/19 10:13 History of Present Illness: 63 year old black male who has been using heavily every since he lost his last year. Now he is using 6-8 bags of heroin daily and crack daily at about $100 daily. See PMH section. Has HCV Disease without prior treatment. - Ebola screening Have you traveled outside of the country in the last 21 days: No Have you had contact with anyone from an Ebola affected area: No Have you been sick,other than usual withdrawal symptoms: No Do you have a fever: No - Review of Systems Constitutional: Chills, Diaphoresis, Loss of Appetite EENT: reports: No Symptoms Reported Respiratory: reports: No Symptoms reported Cardiac: reports: No Symptoms Reported GI: reports: Nausea, Abdominal cramping : reports: No Symptoms Reported Musculoskeletal: reports: Back Pain, Muscle Pain Integumentary: reports: No Symptoms Reported Neuro: reports: Headache, Numbness Endocrine: reports: No Symptoms Reported Hematology: reports: No Symptoms Reported Psychiatric: reports: Judgement Intact, Mood/Affect Appropiate, Orientated x3, Anxious Other Systems: Reviewed and Negative Patient History - Patient Medical History Hx Anemia: No Hx Asthma: No Hx Chronic Obstructive Pulmonary Disease (COPD): No Hx Cancer: No Hx Cardiac Disorders: No Hx Congestive Heart Failure: No Hx Hypertension: No Hx Hypercholesterolemia: No Hx Pacemaker: No HX Cerebrovascular Accident: No Hx Seizures: No Hx Dementia: No Hx Diabetes: No Hx Gastrointestinal Disorders: No Hx Liver Disease: Yes (Hepatitis C, Diagnosed 2001. No Treatment Yet.) Hx Genitourinary Disorders: No Hx Sexually Transmitted Disorders: No Hx Renal Disease (ESRD): No Hx Thyroid Disease: No Hx Human Immunodeficiency Virus (HIV): Yes (Takes Biktarvy, Diagnosed 2001.) Hx Hepatitis C: Yes (Diagnosed 2001. No Treatment Yet.) Hx Depression: Yes (Meds. in Past, None Currently.) Hx Suicide Attempt: No (PATIENT DENEIS CURRENT SI / HI.) Hx Bipolar Disorder: No Hx Schizophrenia: No - Patient Surgical History Past Surgical History: No Hx Neurologic Surgery: No Hx Cataract Extraction: No Hx Cardiac Surgery: No Hx Lung Surgery: No Hx Breast Surgery: No Hx Breast Biopsy: No Hx Abdominal Surgery: No Hx Appendectomy: No Hx Cholecystectomy: No Hx Genitourinary Surgery: No Hx Orthopedic Surgery: No Other Surgical History: DENIES. Anesthesia Reaction: No - PPD History Previous Implant?: Yes Documented Results: Negative w/proof Implanted On Prior [facility] Admission?: Yes Date: 09/25/18 PPD to be Administered?: No - Smoking Cessation Smoking history: Current every day smoker Have you smoked in the past 12 months: Yes Aproximately how many cigarettes per day: 2 Cigars Per Day: 0 Hx Chewing Tobacco Use: No Initiated information on smoking cessation: Yes 'Breaking Loose' booklet given: 01/03/19 - Substances abused Heroin Substance route: Inhalation Frequency: Daily Amount used: 100 hundred dollars Age of first use: 11 Date of last use: 01/02/19 Cocaine Substance route: Smoking Frequency: Daily Amount used: 100 dollars Age of first use: 21 Date of last use: 01/02/19 PCP Substance route: Smoking Frequency: Daily Amount used: 100 dollars Age of first use: 21 Date of last use: 09/13/18 Alcohol Substance route: Oral Frequency: Daily Amount used: 5 small bottle liquor + 1 x 24 oz beer Age of first use: 11 Date of last use: 01/02/19 Marijuana/Hashish Substance route: Smoking Frequency: Daily Amount used: 100 dollars Age of first use: 11 Date of last use: 01/02/19 Admission Physical Exam BHS - Vital Signs Vital Signs: Vital Signs - 24 hr 01/03/19 10:10 Temperature 96.9 F L Pulse Rate 62 Respiratory 18 Rate Blood Pressure 116/74 - Physical General Appearance: Yes: Mild Distress HEENTM: Yes: EOMI, Hearing grossly Normal, Normocephalic, Normal Voice, EDER, Pharynx Normal, Tm's normal Respiratory: Yes: Chest Non-Tender, Lungs Clear, Normal Breath Sounds, No Respiratory Distress, No Accessory Muscle Use Neck: Yes: Within Normal Limits, No masses,lesions,Nodules, Supple, Trachea in good position Breast: Yes: Within Normal Limits Cardiology: Yes: Regular Rhythm, Regular Rate, S1, S2 Abdominal: Yes: Normal Bowel Sounds, Non Tender, Protuberent Genitourinary: Yes: Within Normal Limits Back: Yes: Normal Inspection Musculoskeletal: Yes: full range of Motion, Gait Steady Extremities: Yes: Within Normal Limits, Normal Capillary Refill, Normal Inspection, Normal Range of Motion, Non-Tender Neurological: Yes: tobacco feeder catcher II-XII NML intact, Fully Oriented, Alert, Motor Strength 5/5, Normal Mood/Affect Integumentary: Yes: Normal Color, Warm Lymphatic: Yes: Within Normal Limits - Diagnostic (1) Opioid dependence with withdrawal Current Visit: Yes Status: Acute (2) Cannabis dependence, uncomplicated Current Visit: Yes Status: Chronic (3) Cocaine dependence, uncomplicated Current Visit: Yes Status: Chronic (4) HIV (human immunodeficiency virus infection) Current Visit: Yes Status: Chronic Qualifiers: HIV symptom status: unspecified Qualified Code(s): B20 - Human immunodeficiency virus [HIV] disease (5) Hepatitis C Current Visit: Yes Status: Chronic Qualifiers: Viral hepatitis chronicity: chronic Hepatic coma status: without hepatic coma Qualified Code(s): B18.2 - Chronic viral hepatitis C (6) History of depression Current Visit: Yes Status: Chronic Comment: Non-adherent to bupropion and OPD care. (7) Nicotine dependence Current Visit: Yes Status: Chronic Qualifiers: Nicotine product type: cigarettes Substance use status: uncomplicated Qualified Code(s): F17.210 - Nicotine dependence, cigarettes, uncomplicated (8) PCP (phencyclidine) abuse Current Visit: Yes Status: Chronic (9) Substance induced mood disorder Current Visit: Yes Status: Chronic Cleared for Admission [facility] - Detox or Rehab [facility] Level of Care: Medically Managed Detox Regimen/Protocol: Methadone Claeared for Rehab Admission: No Screened but not Admitted - Documentation of Visit Screened but not Admitted: No Breathalyzer - Breathalyzer Breathalyzer: 0 Vital Signs - Vital Signs Vital signs refused: No Temperature: 96.9 F Temperature source: Oral Pulse Rate: 62 Respiratory Rate: 18 Blood Pressure: 116/74 BP Location: Left Arm Blood Pressure position: Supine - Height Height: 5 ft 8 in - Weight Weight: 199 lb Weight measurement method: Standing scale - BMI Body Mass Index (BMI): 30.2 - Bowel Function Bowel Movement: No Urine Drug Screen - Test Device Lot number: [id number] Expiration date: 09/03/20 - Control Is test valid?: Yes - Results Drug screen NEGATIVE: No Urine drug screen results: THC-Marijuana, NEGRITO-Cocaine, FEN-Fentanyl, MOP-Opiates , OXY-Oxycodone, MTD-Methadone, BZO-Benzodiazepines Inpatient Rehab Admission - Rehab Decision to Admit Inpatient rehab admission?: No
[2019-01-03] MEDS ORDERED: BISMUTH SUBSALICYLATE 262 MG/15 ML BTL PO PRN (11:23)
[2019-01-03] MEDS ORDERED: MAG HYDROX/AL HYDROX/SIMETH 30 ML UNIT-DOSE CUP PO PRN (11:23)
[2019-01-03] MEDS ORDERED: MAGNESIUM HYDROX 2400MG/30ML ORAL SUSPENSION 30 ML CUP PO PRN (11:23)
[2019-01-03] MEDS ORDERED: hydrOXYzine PAMOATE 25 MG CAPSULE (FP) PO PRN (11:23)
[2019-01-03] MEDS ORDERED: MELATONIN 5 MG TABLETS PO PRN (11:23)
[2019-01-03] MEDS ORDERED: MENTHOL/PHENOL 1 EACH UD MM PRN (11:23)
[2019-01-03] MEDS ORDERED: METHOCARBAMOL 500 MG TABLET PO PRN (11:23)
[2019-01-03] MEDS ORDERED: IBUPROFEN 400 MG TABLET (FP) PO PRN (11:23)
[2019-01-03] MEDS ORDERED: ACETAMINOPHEN 325 MG TABLET (FP) PO PRN ×2 (11:23)
[2019-01-03] MEDS ORDERED: cloNIDine HCL 0.1 MG TABLET PO PRN (11:23)
[2019-01-03] MEDS ORDERED: MAGNESIUM CITRATE 300 ML BOTTLE PO PRN (11:23)
[2019-01-03] MEDS ORDERED: METHADONE HCL 10 MG TABLET (FOR DETOX USE ONLY) PO ONE (11:50)
[2019-01-03 14:10] LABS: HEMATOCRIT 40.1 % (35.4-49); HEMOGLOBIN 12.9 GM/dL (11.7-16.9); MCH 30.1 pg (25.7-33.7); MCHC 32.3 g/dl (32.0-35.9); MEAN CELL VOLUME 93.2 fl (80-96); PLATELET COUNT 269 K/MM3 (134-434); RDW 13.3 % (11.9-15.9); WHITE BLOOD COUNT 8.4 K/mm3 (4.0-10.0)
[2019-01-03 14:22] LABS: ALBUMIN 3.8 g/dl (3.4-5.0); BILIRUBIN,TOTAL 0.5 mg/dL (0.2-1); BLOOD UREA NITROGEN 16.1 mg/dL (7-18); CALCIUM 8.8 mg/dL (8.5-10.1); CREATININE 1.3 mg/dL (0.55-1.3); POTASSIUM 4.1 mmol/L (3.5-5.1)
[2019-01-03] MEDS: THIAMINE HCL 100 MG TABLET (FP) PO SCH (22:19)
[2019-01-04] MEDS ORDERED: METHADONE HCL 10 MG TABLET (FOR DETOX USE ONLY) ONE (08:10)
[2019-01-04] MEDS ORDERED: METHADONE HCL 5 MG TABLET (FOR DETOX USE ONLY) ONE (08:11)
[2019-01-04] MEDS: PRENATAL VITAMINS W/ FOLIC ACID TABLET (FP) PO SCH (09:45)
[2019-01-04] MEDS ORDERED: METHADONE (DETOX) 20 MG, METHADONE (DETOX) 5 MG PO ONE (10:00)
--- NOTE | 2019-01-04 12:07 | PN ---
[facility] COWS - Scale Resting Pulse: 0= [place] 80 or Below Sweatin= No chills or Flushing Restless Observation: 1= Difficult to Sit Still Pupil Size: 1= Pupils >than Normal Bone or Joint Aches: 1= Mild Discomfort Runny Nose/ Eye Tearin= Runny Nose/Eyes GI Upset > 30mins: 1= Stomach Cramp Tremor Observation of Outstretched Hands: 1= Tremor [place], Not Seen Yawning Observation: 1= 1-2x During Session Anxiety or Irritability: 2=Irritable/Anxious Goose Flesh Skin: 0=Smooth Skin COWS Score: 10 [facility] Progress Note (SOAP) Subjective: alert,irritable,anxious,interrupted sleep,pain in the body,back Objective: 01/04/19 12:06 Vital Signs Temperature 97.3 F L 01/04/19 09:40 Pulse Rate 57 L 01/04/19 09:40 Respiratory Rate 16 01/04/19 09:40 Blood Pressure 141/67 01/04/19 09:40 O2 Sat by Pulse Oximetry (%) Laboratory Last Values WBC 8.4 K/mm3 (4.0-10.0) 01/03/19 11:30 RBC 4.30 M/mm3 (4.00-5.60) 01/03/19 11:30 Hgb 12.9 GM/dL (11.7-16.9) 01/03/19 11:30 Hct 40.1 % (35.4-49) 01/03/19 11:30 MCV 93.2 fl (80-96) 01/03/19 11:30 MCH 30.1 pg (25.7-33.7) 01/03/19 11:30 MCHC 32.3 g/dl (32.0-35.9) 01/03/19 11:30 RDW 13.3 % (11.9-15.9) 01/03/19 11:30 Plt Count 269 K/MM3 (134-434) 01/03/19 11:30 MPV 9.0 fl (7.5-11.1) 01/03/19 11:30 Sodium 137 mmol/L (136-145) 01/03/19 11:30 Potassium 4.1 mmol/L (3.5-5.1) 01/03/19 11:30 Chloride 105 mmol/L (98-107) 01/03/19 11:30 Carbon Dioxide 25 mmol/L (21-32) 01/03/19 11:30 Anion Gap 6 MMOL/L (8-16) L 01/03/19 11:30 BUN 16.1 mg/dL (7-18) 01/03/19 11:30 Creatinine 1.3 mg/dL (0.55-1.3) 01/03/19 11:30 Est GFR (CKD-EPI)AfAm 67.78 01/03/19 11:30 Est GFR (CKD-EPI)NonAf 58.48 01/03/19 11:30 Random Glucose 93 mg/dL (74-106) 01/03/19 11:30 Calcium 8.8 mg/dL (8.5-10.1) 01/03/19 11:30 Total Bilirubin 0.5 mg/dL (0.2-1) 01/03/19 11:30 AST 94 U/L (15-37) H 01/03/19 11:30 ALT 104 U/L (13-61) H 01/03/19 11:30 Alkaline Phosphatase 90 U/L (45-117) 01/03/19 11:30 Total Protein 8.0 g/dl (6.4-8.2) 01/03/19 11:30 Albumin 3.8 g/dl (3.4-5.0) 01/03/19 11:30 Assessment: 01/04/19 12:06 withdrawal symptom Plan: continue detox methadone regimen
[2019-01-04] MEDS: THIAMINE HCL 100 MG TABLET (FP) PO SCH (22:37)
[2019-01-05] MEDS: PRENATAL VITAMINS W/ FOLIC ACID TABLET (FP) PO SCH (09:02)
[2019-01-05] MEDS ORDERED: METHADONE HCL 10 MG TABLET (FOR DETOX USE ONLY) PO ONE (10:00)
--- NOTE | 2019-01-05 11:42 | PN ---
[facility] COWS - Scale Resting Pulse: 0= [place] 80 or Below Sweatin= No chills or Flushing Restless Observation: 1= Difficult to Sit Still Pupil Size: 1= Pupils >than Normal Bone or Joint Aches: 1= Mild Discomfort Runny Nose/ Eye Tearin= Nasal Congestion GI Upset > 30mins: 1= Stomach Cramp Tremor Observation of Outstretched Hands: 1= Tremor [place], Not Seen Yawning Observation: 1= 1-2x During Session Anxiety or Irritability: 2=Irritable/Anxious Goose Flesh Skin: 0=Smooth Skin COWS Score: 9 [facility] Progress Note (SOAP) Subjective: alert,irritable,anxious,pain in the body and back Objective: 01/05/19 11:42 Vital Signs Temperature 98.2 F 01/05/19 09:17 Pulse Rate 53 L 01/05/19 09:17 Respiratory Rate 18 01/05/19 09:17 Blood Pressure 105/57 L 01/05/19 09:17 O2 Sat by Pulse Oximetry (%) Assessment: 01/05/19 11:42 withdrawal symptom Plan: continue detox methadone regimen
[2019-01-05] MEDS: THIAMINE HCL 100 MG TABLET (FP) PO SCH (22:28)
[2019-01-06] MEDS ORDERED: METHADONE HCL 10 MG TABLET (FOR DETOX USE ONLY) ONE (09:23)
[2019-01-06] MEDS ORDERED: METHADONE HCL 5 MG TABLET (FOR DETOX USE ONLY) ONE (09:23)
[2019-01-06 09:38] VITALS: BP 109/54; PULSE 55; TEMP 98.4
[2019-01-06] MEDS: PRENATAL VITAMINS W/ FOLIC ACID TABLET (FP) PO SCH (09:44)
--- NOTE | 2019-01-06 09:55 | PN ---
[facility] Progress Note Note: pt states he needs to go home back to [employer] to be with family and go see his doctor. pt was advised to stay and complete his detox. pt was advised of the risk of relapse OD, seizures, DT's. Pt insisted on leaving and chose to sign out AMA.
--- NOTE | 2019-01-06 09:57 | DS ---
[facility] Detox Discharge Summary Admission Date: 01/03/19 - History Present History: Alcohol Dependence, Cannabis Dependence, Cocaine Dependence, Opioid Dependence, Pcp Dependence - Physical Exam Results Vital Signs: Vital Signs Temperature 98.4 F 01/06/19 09:37 Pulse Rate 55 L 01/06/19 09:37 Respiratory Rate 18 01/06/19 09:37 Blood Pressure 109/54 L 01/06/19 09:37 O2 Sat by Pulse Oximetry (%) Pertinent Admission Physical Exam Findings: pt arrived in withdrawals Vital Signs Temperature 98.4 F 01/06/19 09:37 Pulse Rate 55 L 01/06/19 09:37 Respiratory Rate 18 01/06/19 09:37 Blood Pressure 109/54 L 01/06/19 09:37 O2 Sat by Pulse Oximetry (%) Laboratory Tests 01/03/19 01/03/19 01/03/19 11:30 11:30 11:30 WBC 8.4 RBC 4.30 Hgb 12.9 Hct 40.1 MCV 93.2 MCH 30.1 MCHC 32.3 RDW 13.3 Plt Count 269 MPV 9.0 Sodium 137 Potassium 4.1 Chloride 105 Carbon Dioxide 25 Anion Gap 6 L BUN 16.1 Creatinine 1.3 Est GFR (CKD-EPI)AfAm 67.78 Est GFR (CKD-EPI)NonAf 58.48 Random Glucose 93 Calcium 8.8 Total Bilirubin 0.5 AST 94 H ALT 104 H Alkaline Phosphatase 90 Total Protein 8.0 Albumin 3.8 RPR Titer Nonreactive today pt c/o of withdrawals however pt chose to sign out AMA. - Treatment Patient has Accepted a Rehab Referral to: referral provided - Medication Discharge Medications: Ambulatory Orders NK [No Known Home Medication] 01/03/19 - Diagnosis (1) Opioid dependence with withdrawal Current Visit: Yes Status: Chronic (2) Cannabis dependence, uncomplicated Current Visit: Yes Status: Chronic (3) Cocaine dependence, uncomplicated Current Visit: Yes Status: Chronic (4) HIV (human immunodeficiency virus infection) Current Visit: Yes Status: Chronic Qualifiers: HIV symptom status: unspecified Qualified Code(s): B20 - Human immunodeficiency virus [HIV] disease (5) Hepatitis C Current Visit: Yes Status: Chronic Qualifiers: Viral hepatitis chronicity: chronic Hepatic coma status: without hepatic coma Qualified Code(s): B18.2 - Chronic viral hepatitis C (6) History of depression Current Visit: Yes Status: Chronic (7) Nicotine dependence Current Visit: Yes Status: Chronic Qualifiers: Nicotine product type: cigarettes Substance use status: uncomplicated Qualified Code(s): F17.210 - Nicotine dependence, cigarettes, uncomplicated (8) PCP (phencyclidine) abuse Current Visit: Yes Status: Chronic (9) Substance induced mood disorder Current Visit: Yes Status: Chronic (10) Elevated alanine aminotransferase (ALT) level Current Visit: No Status: Acute (11) Insomnia Current Visit: No Status: Acute Qualifiers: Insomnia type: unspecified Qualified Code(s): G47.00 - Insomnia, unspecified (12) Non-compliance Current Visit: No Status: Chronic - AMA Did Patient Leave Against Medical Advice: Yes
[2019-01-06] MEDS ORDERED: METHADONE (DETOX) 10 MG, METHADONE (DETOX) 5 MG PO ONE (10:00)
[2019-01-07] MEDS ORDERED: METHADONE HCL 10 MG TABLET (FOR DETOX USE ONLY) PO ONE (10:00)
[2019-01-08] MEDS ORDERED: METHADONE HCL 5 MG TABLET (FOR DETOX USE ONLY) PO ONE (06:00)
== END 2019-01-06 09:42 | disposition left against medical advice (07) | DRG 770 ==
LOC: YASAS 09:53 → Y6N 11:35
PROVIDERS: ADMIT Surgery; ATTEND Surgery
PROC: HZ2ZZZZ Detoxification Services for Substance Abuse Treatment (ICD-10-PCS; principal; 2019-01-03)
DX: F11.23 Opioid dependence with withdrawal (principal); F10.230 Alcohol dependence with withdrawal, uncomplicated; F14.20 Cocaine dependence, uncomplicated; F12.20 Cannabis dependence, uncomplicated; F16.10 Hallucinogen abuse, uncomplicated; F17.210 Nicotine dependence, cigarettes, uncomplicated; F19.24 Other psychoactive substance dependence with psychoactive substance-induced mood disorder; B18.2 Chronic viral hepatitis C; G47.00 Insomnia, unspecified; R74.0 Nonspecific elevation of levels of transaminase and lactic acid dehydrogenase [LDH]; Z21 Asymptomatic human immunodeficiency virus [HIV] infection status; Z91.19 Patient's noncompliance with other medical treatment and regimen
CPT/HCPCS: 36415; 80053; 85027; 86593